=== PATIENT | female | born 1940 | race Caucasian/White ===

== ENCOUNTER → 2018-07-08 | Outpatient (CLI) | payer OTHER ==
[~2018-07-08] VITALS: Ht 160 cm; Wt 76.2 kg
[~2018-07-08] MED LIST: ALOE VERA25 MG PO; CHOLESTEROL CARE PO; DIGESTIVE PO; FLONASE 0.05%50 MCG NASAL; LISINOPRIL40 MG PO; PRIMIDONE50 MG PO; PROBIOTIC1 EAC5 PO; SERTRALINE HCL100 MG PO; SYNTHROID125 MC1 PO; TEARS AGAIN15 ML OPHTHALMIC; TOPROL XL25 MG PO; VITAMIN D-32000 UNIT PO; [UNRECOGNIZED DRUG - OTHER] PO
--- NOTE | ~2018-07-08 | PATH ---
[facility] [address] [place] [address] PATHOLOGY RPT PROCEDURE Name: ELDA SOUSA Room #: REG LUMA Melony#: [id number] Admission: 07/08/18 Date of : 42 Discharge: Report #: [id number] Path Case #: [id number] [facility] Accession Number: [id number] . 01 Material submitted: . PART A: BX SMALL BOWEL R/T DIARRHEA R/O CELIAC PART B: BX GASTRITS R/O H PYLORI PART C: POLYP AT 60CM PART D: POLYP AT PROX ASCENDING COLON PART E: POLYP AT CECUM X2 PART F: RANDOM R/SIDE COLON BX R/O MICROSCOPIC COLITIS (R/T DIARRHEA) PART G: POLYP AT HEPATIC FLEXURE X2 PART H: RANDOM L/SIDE COLON BX R/O MICROSCOPIC COLITIS PART I: POLYP AT 40CM . 01 Clinical history: . Gastritis, esophagitis, dysphagia, colon polyp. . 02 Diagnosis: A. Small intestinal mucosa, "biopsy small bowel": - No diagnostic changes. - There is no evidence of acute cryptitis, granulomas, adenomatous change, sprue-like changes or malignancy. . B. Gastric mucosa, "biopsy gastritis": - Mild chronic reactive gastropathy. - A minute fragment of small intestinal mucosa reveals no diagnostic changes. - The immunoperoxidase stains for Helicobacter pylori is negative. . C. Colonic mucosa, "polyp at 60 cm": - Tubular adenoma. - There is no evidence of high grade dysplasia or malignancy. . D. Colonic mucosa, "polyp at proximal ascending colon": - Tubular adenoma. - There is no evidence of high grade dysplasia or malignancy. . E. Colonic mucosa, "polyp at cecum x2": - Tubular adenomas. - There is no evidence of high grade dysplasia or malignancy. . F. Colonic mucosa, random right colon biopsy, rule out microscopic colitis": - No obvious diagnostic changes. - There is no evidence of acute cryptitis, granulomas, adenomatous changes or microscopic colitis or malignancy. . [facility] [address] [place] [address] PATHOLOGY RPT PROCEDURE Name: ELDA SOUSA Room #: REG [facility].#: [id number] Admission: 07/08/18 Date of : 42 Discharge: Report #: [id number] Path Case #: [id number] G. Colonic mucosa, "polyp at hepatic flexure x2": - Fragments of tubular adenomas. - There is no evidence of high grade dysplasia or malignancy. . H. Colonic mucosa, "random left side colon biopsy, rule out microscopic colitis: - No diagnostic changes. - There is no evidence of acute cryptitis, granulomas, adenomatous change, changes of microscopic colitis or malignancy. . I. Colonic mucosa, "polyp at 40 cm": - Tubular adenoma. - There is no evidence of high grade dysplasia or malignancy. . (SHA:mml; 07/11/18) [facility]/07/11/2018 . 02 Electronically signed: . Vladimir Rizzo MD, Pathologist NPI- [id number] . 01 Gross description: . A. Received in formalin labeled "Elda Sousa, biopsy small bowel rule out celiac" is a 1.3 x 0.6 x 0.2 cm aggregate of romero-brown soft tissue. The specimen is submitted in cassette A1. . B. Received in formalin labeled "Yaniv Elda, biopsy gastritis rule out H. pylori" is a 1.0 x 0.5 x 0.2 cm aggregate of romero-brown soft tissue. The specimen is submitted in cassette B1. . C. Received in formalin labeled "Yaniv Elda, polyp at 60 cm" is a 1.0 x 0.4 x 0.3 cm fragment of romero-brown soft tissue. The specimen is submitted in cassette C1. . D. Received in formalin labeled "Elda Sousa, polyp at proximal ascending colon" is a 0.5 x 0.5 x 0.2 cm aggregate of romero-brown soft tissue. The specimen is submitted in cassette D1. . E. Received in formalin labeled "Elda Sousa, polyp cecum x2" are two fragments of romero-brown soft tissue measuring in aggregate 0.6 x 0.6 x 0.3 cm. The specimen is submitted in cassette E1. . F. Received in formalin labeled "Yaniv Elda, random right side colon biopsy rule out microscopic colitis" is a 1.8 x 0.5 x 0.2 cm aggregate of romero-brown soft tissue. The specimen is submitted in cassette F1. . [facility] [address] [place] [address] PATHOLOGY RPT PROCEDURE Name: ELDA SOUSA Room #: REG [facility]#: [id number] Admission: 07/08/18 Date of : 42 Discharge: Report #: [id number] Path Case #: [id number] G. Received in formalin labeled "Elda Sousa, polyp at hepatic flexure x2" is a 1.0 x 0.5 x 0.2 cm aggregate of romero-brown soft tissue. The specimen is submitted in cassette G1. . H. Received in formalin labeled "Elda Sousa, random left side colon biopsy rule out microscopic colitis" is a 1.6 x 0.6 x 0.2 cm aggregate of romero-brown soft tissue. The specimen is submitted in cassette H1. . I. Received in formalin labeled "Elda Sousa, polyp at 40 cm" are two fragments of romero-brown soft tissue measuring in aggregate 0.5 x 0.5 x 0.1 cm. The specimen is submitted in cassette I1. ([facility]; 07/10/2018) SYC/SYC . 02 Pathologist provided ICD-10: K31.9, D12.6, D12.2, D12.0, D12.3, R19.7, R10.13 . 02 CPT . 098587, 788299, 870495, 875139, 670245, 340253, 705859, 865744, 865591, [id number] Specimen Comment: A courtesy copy of this report has been sent to Specimen Comment: [phone], . Specimen Comment: Report sent to / DR SMITH Performed at: [address], [place], [place] [id number] MD Tariq Vilchis MD Phone: [phone] Performed at: [address] [id number] MD Fartun Stover MD Phone: [phone]
--- NOTE | ~2018-07-08 | P ---
[facility] [place] [place] [address] PROCEDURE REPORT Name: LUIS SOUSA Room #: REG [facility]#: [id number] Admission: 07/08/18 Attend Phys: Alli Smith MD Discharge: Date of : 42 Report #: [id number] THIS REPORT FOR: //name// CC: Alli Barbosa BRIEF HISTORY: The patient is a 78-year-old woman with increasing heartburn symptoms. She also has intermittent solid food dysphagia. In addition, she does have diabetes and has worsening diarrhea with multiple loose stools daily. PREOPERATIVE DIAGNOSES: Heartburn, dysphagia and diarrhea. POSTOPERATIVE DIAGNOSES: 1. Grade A esophagitis. 2. Diffuse gastritis. 3. Solid food dysphagia. MEDICATIONS: Deep sedation with propofol per Anesthesia. SPECIMENS: 1. Small bowel biopsies to rule out celiac disease. 2. Biopsies of gastritis. ESTIMATED BLOOD LOSS: 3 mL. PROCEDURE: EGD with biopsy and Shirley dilation. FINDINGS: Prior to propofol sedation, procedure of upper endoscopy and dilation was discussed with the patient as well as potential risks and its complications. She indicates she understands and desires to proceed. DESCRIPTION OF PROCEDURE: With the patient in left lateral decubitus position, the Olympus video endoscope was inserted in the cervical esophagus under direct vision without difficulty. Examination of this organ through its entire length revealed normal esophageal mucosa down the squamocolumnar junction. At the squamocolumnar junction, a couple of very small erosions were seen consistent with a mild grade A erosive esophagitis. A hiatus hernia was not seen. In view of her complaints of dysphagia, a stricture or ring was not seen. The scope was advanced fully into the stomach, was examined on end view as well as retroflexed views. There was erythema in the antrum of the stomach. No ulcers or erosions were seen. Upon retroflexion, no mass lesions were seen. Biopsies obtained of the gastritis. The pylorus, duodenal bulb and postbulbar duodenal sweep were inspected and noted to be unremarkable. Due to her complaints of diarrhea, multiple small bowel biopsies were obtained to evaluate for celiac disease. At that point, the scope was slowly withdrawn and careful circumferential views confirmed the above findings. The patient tolerated the procedure well. [address] [address] PROCEDURE REPORT Name: LUIS SOUSA Room #: REG [facility].#: [id number] Admission: 07/08/18 Attend Phys: Alli Smith MD Discharge: Date of : 42 Report #: [id number] Subsequently, she was dilated with a 50-[place] Shirley dilator due to complaints of dysphagia. No resistance was encountered. CONDITION OF THE PATIENT UPON DISCHARGE: Following the procedure, the patient was drowsy and prepared for colonoscopy. INSTRUCTIONS TO THE PATIENT AND FAMILY AT THE TIME OF DISCHARGE: She does have very mild esophagitis. We will have her take omeprazole 20 mg daily for about 6-8 weeks and then reduce to lowest doses required to control her symptoms. I do not see definite stricture or ring, but she was dilated empirically. If she has recurrent symptoms, she can return on an as needed basis for dilation. We will follow up on biopsies with regards to celiac disease and proceed with colonoscopy at this time. By: [id number] Alli Smith MD /nt
--- NOTE | ~2018-07-08 | P ---
[facility] [place] [address] [place] [address] PROCEDURE REPORT Name: LUIS SOUSA Room #: REG [facility]#: [id number] Admission: 07/08/18 Attend Phys: Alli Smith MD Discharge: Date of : 42 Report #: [id number] THIS REPORT FOR: //name// CC: Alli Barbosa BRIEF HISTORY: The patient is a 78-year-old woman. She has a history of colon polyps. She also has had worsening diarrhea. PREOPERATIVE DIAGNOSES: History of colon polyps and diarrhea. POSTOPERATIVE DIAGNOSES: 1. Multiple colonic polyps. 2. Diverticulosis coli, right and left colon. MEDICATIONS: Deep sedation with propofol per Anesthesia. SPECIMENS: 1. Polyp at 60 cm. 2. Polyp, proximal ascending colon. 3. Polyp cecum x 2. 4. Random right-sided colon biopsies, rule out colitis. 5. Polyp, hepatic flexure x 2. 6. Random left-sided colon biopsies. 7. Polyp at 40 cm. ESTIMATED BLOOD LOSS: 3 mL. PROCEDURE: Colonoscopy to cecum and terminal ileum with snare polypectomy and biopsy. FINDINGS: Prior to propofol sedation, procedure of colonoscopy discussed with the patient as well as potential risks, benefits and complications. She indicates she understands and desires to proceed. With the patient in the left lateral decubitus position, digital examination was completed, which revealed no abnormalities. Subsequently, the Olympus video colonoscope was introduced in the rectum, advanced under direct vision to the cecum. Done with minimal difficulty. The cecum was identified by the ileocecal valve and the appendiceal orifice. I was able to visualize the distal segment of the terminal ileum, which was inspected and noted to be unremarkable. At that point, the scope was slowly withdrawn and careful circumferential views obtained. Upon slow withdrawal of the scope, the prep was good. The mucosa was within normal limits, normal vascular pattern, normal light reflex. As we withdrew the scope, 2 polyps were seen in the cecum. One was a sessile 5-6 mm polyp, removed by cold snare polypectomy. Other was a diminutive polyp removed [address] [address] PROCEDURE REPORT Name: LUIS SOUSA Room #: REG LUMA Ty#: [id number] Admission: 07/08/18 Attend Phys: Alli Smith MD Discharge: Date of : 42 Report #: [id number] with biopsy forceps. The scope was further withdrawn in the proximal ascending colon and another diminutive polyp was seen and removed by biopsy. At the hepatic flexure, 2 polyps were seen. One was a 4-5 mm polyp removed by cold snare polypectomy. The second was a slightly smaller polyp removed with biopsy forceps. As we withdrew the scope, the mucosa was inspected. It was intact and had a normal appearance. However, in view of her complaints of diarrhea, multiple random biopsies obtained in the right colon as well as the left colon. The scope was further withdrawn, and at 60 cm, a 5-6 mm sessile polyp was seen and removed by cold snare polypectomy and recovered. At 40 cm, a diminutive polyp was seen and removed with biopsy forceps. In addition, the patient was noted to have [id number] sigmoid diverticular disease. There were also noted to be a few scattered diverticula in proximal colon. There was no endoscopic evidence of diverticulitis. The scope was further withdrawn and no additional abnormalities were seen. The scope was withdrawn in the distal rectum. Upon retroflexion, no abnormalities were seen. Scope was withdrawn. The patient tolerated the procedure well. CONDITION OF THE PATIENT UPON DISCHARGE: Following procedure, the patient drowsy, arousable and conversant and will be discharged home when fully ambulatory. INSTRUCTIONS TO THE PATIENT AND FAMILY AT THE TIME OF DISCHARGE: We will follow up on the path with regards to the polyp. If 3 or more adenomas, she is to return in 3 years; if only 1 or 2 adenomas, then 5 years will be indicated. If by chance not are adenomas, however, at that point in life, there may not be much benefit from proceeding with routine colonoscopy in 10 years. As far as the random biopsies, we will evaluate for microscopic colitis. If there is no evidence of microscopic colitis, may consider treatment for bile salt diarrhea. She should return to care of Dr. Barbosa and return to see me as needed. We will make recommendations after review of the path. Last colonoscopy was approximately 5 years ago. Withdrawal time from the cecum was 18 minutes and 16 seconds. By: [id number] Alli Smith MD /nt
== END | disposition home or self-care (01) ==
LOC: GI 06:28
DX: D12.5 Benign neoplasm of sigmoid colon (principal); D12.2 Benign neoplasm of ascending colon; D12.0 Benign neoplasm of cecum; D12.3 Benign neoplasm of transverse colon; K31.9 Disease of stomach and duodenum, unspecified; K21.0 Gastro-esophageal reflux disease with esophagitis; K57.30 Diverticulosis of large intestine without perforation or abscess without bleeding; K29.70 Gastritis, unspecified, without bleeding; Z86.010 Personal history of colon polyps; Z88.8 Allergy status to other drugs, medicaments and biological substances; I10 Essential (primary) hypertension; E78.5 Hyperlipidemia, unspecified; E11.9 Type 2 diabetes mellitus without complications; Z90.710 Acquired absence of both cervix and uterus; Z98.41 Cataract extraction status, right eye; Z98.42 Cataract extraction status, left eye; Z90.49 Acquired absence of other specified parts of digestive tract; Z98.890 Other specified postprocedural states; Z79.899 Other long term (current) drug therapy; Z88.6 Allergy status to analgesic agent